=== PATIENT | female | born 1995 | race Caucasian/White ===

== ENCOUNTER 2017-11-09 14:00 | Outpatient (RCR) | payer BC, OTHER | END 2017-12-08 | disposition home or self-care (01) | LOC: MKS.ESL.PT | DX: N39.3 Stress incontinence (female) (male) (principal) ==

== ENCOUNTER → 2017-12-24 | Outpatient (CLI) | payer BC, OTHER | LOC: COL.RAD 07:02 | DX: E05.90 Thyrotoxicosis, unspecified without thyrotoxic crisis or storm (principal) | CPT/HCPCS: A9516 ==

== ENCOUNTER → 2017-12-25 | Outpatient (CLI) | payer BC, OTHER | LOC: COL.RAD 06:38 | DX: E05.90 Thyrotoxicosis, unspecified without thyrotoxic crisis or storm (principal) ==

== ENCOUNTER 2018-01-18 16:00 | Outpatient (RCR) | payer BC, OTHER | END 2018-02-10 10:44 | disposition home or self-care (01) | LOC: MKS.ESL.PT 16:00 | DX: N39.3 Stress incontinence (female) (male) (principal) ==